=== PATIENT | male | born 1970 | race Caucasian/White ===

== ENCOUNTER 2016-07-25 00:26 | Emergency (ER) | payer SELFPAY ==
[2016-07-25 01:35] LABS: ABSOLUTE BASOPHILS # (AUTO) 0.1 10^3/uL (0.0-0.2); ABSOLUTE EOSINOPHILS # (AUTO) 0.3 10^3/uL (0.0-0.6); ABSOLUTE LYMPHOCYTES (AUTO) 1.5 10^3/uL (0.5-4.7); ABSOLUTE MONOCYTES (AUTO) 0.8 10^3/uL (0.1-1.4); ABSOLUTE NEUT (AUTO) 4.1 10^3/uL (1.7-8.2); BASOPHILS % (AUTO) 1.2 % (0-2); HEMATOCRIT 39.4 % (37.9-51.0); HGB HCT DIFFERENCE -0.4; LYMPHOCYTES % (AUTO) 21.4 % (13-45); MEAN CORPUSCULAR HEMOGLOBIN 28.7 pg (27.0-33.4); MEAN CORPUSCULAR HGB CONC 32.9 g/dL (32.0-36.0); MEAN CORPUSCULAR VOLUME 87 fl (80-97); MONOCYTES % (AUTO) 12.1 % (3-13); RED BLOOD COUNT 4.51 10^6/uL (4.35-5.55); RED CELL DISTRIBUTION WIDTH 13.5 % (11.5-14.0); SEGMENTED NEUTROPHILS % (AUTO) 60.3 % (42-78); WHITE BLOOD COUNT 6.8 10^3/uL (4.0-10.5)
[2016-07-25 01:48] LABS: ALANINE AMINOTRANSFERASE 21 U/L (21-72); ALBUMIN 4.2 g/dL (3.5-5.0); ALKALINE PHOSPHATASE 65 U/L (38-126); ANION GAP 12 (5-19); ASPARTATE AMINO TRANSFERASE 20 U/L (17-59); BILIRUBIN,TOTAL 0.5 mg/dL (0.2-1.3); BLOOD UREA NITROGEN 22 mg/dL (7-20); CALCIUM 9.5 mg/dL (8.4-10.2); CARBON DIOXIDE 27 mmol/L (22-30); CHLORIDE 104 mmol/L (98-107); CREATININE RESULT 1.12 mg/dL (0.52-1.25); GLUCOSE 104 mg/dL (75-110); POTASSIUM 4.7 mmol/L (3.6-5.0); SODIUM 143.3 mmol/L (137-145); TOTAL PROTEIN 7.2 g/dL (6.3-8.2)
[2016-07-25 01:49] LABS: ALCOHOL < 10 mg/dL (NONE DETECTED)
[2016-07-25 01:54] LABS: APPEARANCE,URINE CLEAR; BILIRUBIN,URINE NEGATIVE (NEGATIVE); GLUCOSE, URINE NEGATIVE (NEGATIVE); KETONES,URINE NEGATIVE (NEGATIVE); LEUKOCYTE ESTERASE,URINE NEGATIVE (NEGATIVE); NITRITE,URINE NEGATIVE (NEGATIVE); PROTEIN,URINE 100 mg/dL (NEGATIVE); URINE SPECIFIC GRAVITY 1.016; UROBILINOGEN,URINE NEGATIVE mg/dL (<2.0)
--- NOTE | 2016-07-25 01:55 | ER Document Report ---
ED Psych Disorder / Suicide - General Mode of Arrival: Ambulatory Information source: Patient TRAVEL OUTSIDE OF THE [place] IN LAST 30 DAYS: No - HPI Patient complains to provider of: Suicidal ideation, Suicidal plan Associated symptoms: Other - see above <MK CHAPMAN - Last Filed: 07/25/16 03:33> <HUNTER TRUONG - Last Filed: 07/25/16 03:52> - General Chief Complaint: Psych Problem Stated Complaint: SUICIDAL IDEATION Notes: 46 year old male presents to the ED complaining of having "scary" intermittent thoughts of suicide that started today. Patient states that he has a suicide plan, but doesn't have the will to carry it out, "unlike his son." Patient states that he is a "burden" on his sister. Patient states that he feels "different" now. Patient admits that he is homeless, but sometimes stays at his sister's trailer house. Patient denies smoking, but admits to tobacco and alcohol use. (MK CHAPMAN) - Related Data Allergies/Adverse Reactions: No Known Allergies Allergy (Verified 10/01/15 18:08) Home Medications: Current Home Medications Carbamazepine [Tegretol Xr] 200 mg PO BID 07/25/16 [History] Clopidogrel Bisulfate [Plavix 75 mg Tablet] 75 mg PO DAILY 07/25/16 [History] Lurasidone HCl [Latuda] 80 mg PO DAILY 07/25/16 [History] Metoprolol Tartrate [Metoprolol Tartrate] 50 mg PO DAILY 07/25/16 [History] Past Medical History - General Information source: Patient - Social History Smoking Status: Never Smoker Chew tobacco use (# tins/day): Yes Frequency of alcohol use: Rare Family History: Reviewed & Not Pertinent, Other - depression - Past Medical History Cardiac Medical History: Reports: Hx Hypercholesterolemia Endocrine Medical History: Reports: Hx Diabetes Mellitus Type 2 Past Surgical History: Reports: Hx Cardiac Surgery - stent, Hx Orthopedic Surgery - left tibia, Hx Thyroid Surgery - hoshimotos-thyroidectomy - Immunizations Hx Diphtheria, Pertussis, Tetanus Vaccination: Yes <MK CHAPMAN - Last Filed: 07/25/16 03:33> Review of Systems - Review of Systems Constitutional: No symptoms reported EENT: No symptoms reported Cardiovascular: No symptoms reported Respiratory: No symptoms reported Gastrointestinal: No symptoms reported Genitourinary: No symptoms reported Male Genitourinary: No symptoms reported Musculoskeletal: No symptoms reported Skin: No symptoms reported Hematologic/Lymphatic: No symptoms reported Neurological/Psychological: See HPI, Suicidal ideation -: Yes All other systems reviewed and negative <CHAPMANMK - Last Filed: 07/25/16 03:33> Physical Exam - Vital signs Interpretation: Normal - General General appearance: Alert In distress: None - HEENT Head: Normocephalic, Atraumatic Eyes: Normal Extraocular movements intact: Yes Pupils: PERRL - Respiratory Respiratory status: No respiratory distress Breath sounds: Normal - Cardiovascular Rhythm: Regular Heart sounds: Normal auscultation - Abdominal Inspection: Normal - Back Back: Normal - Extremities General upper extremity: Normal inspection, Normal ROM General lower extremity: Normal inspection, Normal ROM - Neurological Neuro grossly intact: Yes Cognition: Normal Orientation: AAOx4 [place] Coma Scale Eye Opening: Spontaneous Phani Coma Scale Verbal: Oriented [place] Coma Scale Motor: Obeys Commands Phani Coma Scale Total: 15 Speech: Normal - Psychological Associated symptoms: Angry, Labile, Tearful - Skin Skin Temperature: Warm Skin Moisture: Dry Skin Color: Normal <CHAPMANMK - Last Filed: 07/25/16 03:33> <HUNTER TRUONG - Last Filed: 07/25/16 03:52> - Vital signs Vitals: Temp Pulse Resp BP Pulse Ox 98.0 F 80 18 140/88 H 98 07/25/16 01:30 07/25/16 01:30 07/25/16 01:30 07/25/16 01:30 07/25/16 01:30 (HUNTER TRUONG) Course - Laboratory Result Diagrams: 07/25/16 01:20 07/25/16 01:20 <MK CHAPMAN - Last Filed: 07/25/16 03:33> - Laboratory Result Diagrams: 07/25/16 01:20 07/25/16 01:20 <HUNTER TRUONG - Last Filed: 07/25/16 03:52> - Re-evaluation Re-evalutation: 07/25/16 Patient is medically stable. He'll be held for mental health evaluation. Patient is voluntary at this time. (HUNTER TRUONG) - Vital Signs Vital signs: Temp Pulse Resp BP Pulse Ox 98.0 F 80 18 140/88 H 98 07/25/16 01:30 07/25/16 01:30 07/25/16 01:45 07/25/16 01:30 07/25/16 01:30 (HUNTER TRUONG) - Laboratory Laboratory results interpreted by me: 07/25/16 07/25/16 07/25/16 01:20 01:20 01:40 Hgb 13.0 L BUN 22 H Urine Protein 100 H Salicylates < 1.0 L Acetaminophen < 10 L (MK CHAPMAN) (HUNTER TRUONG) Discharge <MK CHAPMAN - Last Filed: 07/25/16 03:33> <HUNTER TRUONG - Last Filed: 07/25/16 03:52> - Discharge Clinical Impression: Depression Qualifiers: Depression Type: unspecified Qualified Code(s): F32.9 - Major depressive disorder, single episode, unspecified Condition: Stable Disposition: PSYCH HOSP/UNIT Scribe Attestation: 07/25/16 03:52 I personally performed the services described in the documentation, reviewed and edited the documentation which was dictated to the scribe in my presence, and it accurately records my words and actions. (HUNTER TRUOGN) Scribe Documentation - Scribe Written by Scribe:: Dorothea Allen, 07/25/2016 3:10 acting as scribe for :: Jorgito <MK CHAPMAN - Last Filed: 07/25/16 03:33>
[2016-07-25 02:21] LABS: URINE BARBITURATES SCREEN NEGATIVE; URINE METHADONE SCREEN NEGATIVE; URINE PHENCYCLIDINE SCREEN NEGATIVE
[2016-07-25] MEDS ORDERED: METOPROLOL SUCCINATE 50 MG TAB.SR.24H PO SCH (11:45)
[2016-07-25] MEDS ORDERED: LISINOPRIL 10 MG TABLET PO SCH (11:45)
[2016-07-25] MEDS ORDERED: CLOPIDOGREL BISULFATE 75 MG TABLET PO SCH (11:45)
[2016-07-25] MEDS ORDERED: LEVOTHYROXINE SODIUM 0.1 MG TABLET PO SCH (11:45)
[2016-07-25] MEDS ORDERED: METFORMIN HCL 500 MG TABLET PO SCH ×2 (12:00→16:00)
[2016-07-25] MEDS ORDERED: AMLODIPINE BESYLATE 10 MG TABLET PO SCH (12:00)
[2016-07-25] MEDS ORDERED: CARBAMAZEPINE 200 MG TAB.SR.12H PO SCH (12:00)
[2016-07-25 13:21] VITALS: BP 152/89
--- NOTE | 2016-07-25 13:35 | PSYCHOLOGICAL NOTE ---
Psych Note - Psych Note Psych Note: Patient is a 46 year old male who presented voluntarily last night seeking assistance for suicidal ideations. Patient did report a plan, although declined to report specifics. Patient did deny intent upon arrival. Patient does have a history of prior suicide attempts via hanging after his son completed suicide in the same manner. Patient does present with homelessness due to his separation from his , last year. Patient was held voluntarily for evaluation this morning to assist in referrals and coordination of services. Patient this morning is mostly irritable and noncompliant with providing specific answers during conversations. Patient mostly answered questions with other questions. Example, "what do you people want me to say?" or when asked about what specifically he was applying for disability, he would states, "there are 16 different things wrong with me, and Social Security wont pull their head out of their a to give me disability." Patient states he has been denied disability multiple times. Patient states yes he is suicidal and has 50,000 different plans and has so for 20 years, and also wants to kill his aunt, uncle, etc and has 50,000 plans how to do that as well. Patient states if God came down and told him it would be ok, he would do it. "But I don't have the balls to do it." Patient states he is technically homeless, but stays in a camper at his sister's house. He states last night he walked to a local business to call 911 to come to the ER "because the thoughts were scaring me." Patient additionally reports he is followed by [facility] where he is prescribed Latuda and one other psych med. Patient states he is mostly compliant, except for the morning doses because he sleeps late and does not want to take them too close together. Patient is A&Ox4. Mood is irritable/labile with congruent affects. Patient endorses suicidal/homicidal ideations, but denies intent. Patient denies A/V H; delusions not noted. Thought processes were organized, but perseverative on the injustices being done to him (eg denied for SSI, minimal amount of food stamps, etc). Conversational speech was labile for rate, tone, and prosody. Intellectual abilities were estimated within average range. Attention and focus were fair. Insight, judgment, and impulse control were poor. 296.80 (F31.9) Unspecified Bipolar and Related Disorder, per history Patient is psychiatrically cleared for discharge to follow up with his provider at [facility]. Patient denies wanting to by suicide. While patient does endorse having through of "50,000 different ways" to kill himself, as well as identified family members, these thoughts have been chronic x20 years (per patient). Patient states he is not committed to dying by suicide and states the only thing in his life he is committed to is making his marriage work. Contacted [facility] and coordinated follow up care for patient as a walk in today. Patient's presentation is suggestive of him trying to meet his basic needs through the misuse of the emergency medical system and mental health systems, for both correction and possibly disability. I consulted with Dr. Cullen in regards to the care and management of this patient. ED MD is in agreement with disposition and recommendations.
--- NOTE | 2016-07-25 14:58 | EKG REPORT ---
SEVERITY:- NORMAL ECG - SINUS RHYTHM : Confirmed by: Melissa Llamas MD 25-Jul-2016 14:57:00
== END 2016-07-25 13:18 | disposition home or self-care (01) ==
LOC: ER 00:26
DX: F32.9 Major depressive disorder, single episode, unspecified (principal); R45.851 Suicidal ideations; R45.850 Homicidal ideations; Z59.0 Homelessness; Z72.0 Tobacco use; E11.9 Type 2 diabetes mellitus without complications; Z98.61 Coronary angioplasty status; E89.0 Postprocedural hypothyroidism
CPT/HCPCS: 36415; 80053; 80307; 81001; 82962; 85025; 93005; 93010; 99284

== ENCOUNTER → 2016-10-17 | Outpatient (CLI) | payer OTHER | LOC: CCC 14:10 | DX: E03.9 Hypothyroidism, unspecified (principal) | CPT/HCPCS: 36415; 84443 ==

== ENCOUNTER → 2016-12-13 | Outpatient (CLI) | payer OTHER | LOC: CCC 14:21 | DX: E11.9 Type 2 diabetes mellitus without complications (principal); E03.9 Hypothyroidism, unspecified | CPT/HCPCS: 36415; 83036; 84478 ==

== ENCOUNTER → 2017-03-27 | Outpatient (CLI) | payer OTHER ==
[2017-03-27 13:52] LABS: ALANINE AMINOTRANSFERASE 31 U/L (21-72); ALBUMIN 4.5 g/dL (3.5-5.0); ALKALINE PHOSPHATASE 69 U/L (38-126); ANION GAP 12 (5-19); ASPARTATE AMINO TRANSFERASE 25 U/L (17-59); BILIRUBIN,DIRECT 0.4 mg/dL (0.0-0.4); BILIRUBIN,TOTAL 0.6 mg/dL (0.2-1.3); BLOOD UREA NITROGEN 19 mg/dL (7-20); CARBON DIOXIDE 24 mmol/L (22-30); CHLORIDE 105 mmol/L (98-107); CHOLESTEROL 202.03 mg/dL (0-200); CREATININE RESULT 1.19 mg/dL (0.52-1.25); Direct HDL 36 mg/dL (>40); GLUCOSE 163 mg/dL (75-110); POTASSIUM 4.4 mmol/L (3.6-5.0); SODIUM 140.7 mmol/L (137-145); TOTAL PROTEIN 7.2 g/dL (6.3-8.2)
[2017-03-27 14:03] LABS: DIRECT LDL 58 mg/dL (<100)
[2017-03-27 14:08] LABS: TRIGLYCERIDES 638 mg/dL (<150)
[2017-03-27 14:22] LABS: THYROID STIMULATING HORMONE 62.3 uIU/mL (0.47-4.68)
== END ==
LOC: CCC 12:23
DX: E03.9 Hypothyroidism, unspecified (principal); E78.4 Other hyperlipidemia; E11.40 Type 2 diabetes mellitus with diabetic neuropathy, unspecified
CPT/HCPCS: 36415; 80053; 80061; 80178; 84439; 84443

== ENCOUNTER → 2017-05-31 | Outpatient (CLI) | payer OTHER ==
[2017-05-31 10:23] LABS: ANION GAP 14 (5-19); BLOOD UREA NITROGEN 18 mg/dL (7-20); CALCIUM 10.2 mg/dL (8.4-10.2); CARBON DIOXIDE 24 mmol/L (22-30); CHLORIDE 104 mmol/L (98-107); CREATININE RESULT 1.08 mg/dL (0.52-1.25); GLUCOSE 228 mg/dL (75-110); LITHIUM 0.3 mEq/L (0.6-1.2); POTASSIUM 4.2 mmol/L (3.6-5.0); SODIUM 142.3 mmol/L (137-145)
== END ==
LOC: OD 08:35
DX: F31.81 Bipolar II disorder (principal); E11.8 Type 2 diabetes mellitus with unspecified complications
CPT/HCPCS: 36415; 80048; 80178; 83036

== ENCOUNTER → 2017-07-17 | Outpatient (CLI) | payer OTHER | LOC: CCC 16:18 | DX: E11.8 Type 2 diabetes mellitus with unspecified complications (principal); E03.9 Hypothyroidism, unspecified | CPT/HCPCS: 36415; 84443 ==

== ENCOUNTER → 2018-05-01 | Outpatient (CLI) | payer OTHER | LOC: CCC 08:02 | DX: E03.9 Hypothyroidism, unspecified (principal) | CPT/HCPCS: 36415; 84436; 84443 ==

== ENCOUNTER → 2018-06-10 | Outpatient (CLI) | payer OTHER ==
[2018-06-10 09:31] LABS: HEMATOCRIT 39.8 % (37.9-51.0); MEAN CORPUSCULAR HGB CONC 35.2 g/dL (32.0-36.0); MEAN CORPUSCULAR VOLUME 88 fl (80-97); PLATELET COUNT 294 10^3/uL (150-450); RED BLOOD COUNT 4.51 10^6/uL (4.35-5.55); RED CELL DISTRIBUTION WIDTH 12.8 % (11.5-14.0); WHITE BLOOD COUNT 7.1 10^3/uL (4.0-10.5)
[2018-06-10 09:52] LABS: CHOLESTEROL 291.27 mg/dL (0-200)
[2018-06-10 10:03] LABS: DIRECT LDL 79 mg/dL (<100)
[2018-06-10 10:06] LABS: TRIGLYCERIDES 1363 mg/dL (<150)
[2018-06-10 10:22] LABS: ABSOLUTE LYMPHOCYTES# (MANUAL) 1.6 10^3/uL (0.5-4.7); ABSOLUTE MONOCYTES # (MANUAL) 0.6 10^3/uL (0.1-1.4); ABSOLUTE NEUTROPHILS# (MANUAL) 4.5 10^3/uL (1.7-8.2); BAND NEUTROPHILS % (MANUAL) 1 % (3-5); BASOPHILS % (MANUAL) 2 % (0-2); EOSINOPHILS % (MANUAL) 3 % (0-6); LYMPHOCYTES % (MANUAL) 21 % (13-45); MONOCYTES % (MANUAL) 8 % (3-13); POLYCHROMASIA SLIGHT; SEGMENTED NEUTROPHILS % (MAN) 63 % (42-78); TOTAL CELLS COUNTED 100
[2018-06-10 10:23] LABS: PLATELET CLUMPS PRESENT; TOXIC GRANULATION SLIGHT
== END ==
LOC: CCC 08:04
DX: E11.8 Type 2 diabetes mellitus with unspecified complications (principal)
CPT/HCPCS: 36415; 80061; 83036; 84443; 85025